=== PATIENT | female | born 1950 | race Caucasian/White ===

== ENCOUNTER 2017-10-13 08:27 | Day surgery (SDC) | payer MEDICARE, BC ==
[~2017-10-13] VITALS: Ht 165.1 cm; Wt 74.8 kg
--- NOTE | ~2017-10-13 | OP ---
PATIENT NAME: RODRIGO BRADFORD MEDICAL RECORD: [id number] :46 LOCATION:D.OPS ADMISSION DATE: SURGEON: CARLOS DUGGAN MD DATE OF OPERATION: 10/13/2017 PREOPERATIVE DIAGNOSIS: Transverse colon polyp, at 60 cm, serrated adenoma. POSTOPERATIVE DIAGNOSES: Transverse colon polyp, at 60 cm, serrated adenoma with no evidence of recurrence or persistence of the polyp. PROCEDURE: Total colonoscopy to cecum. SURGEON: Carlos Duggan MD CEILING INSULATION BLOWER: None. BLOOD LOSS: Minimal. ANESTHESIA: General. COMPLICATIONS: None. The procedure was performed in the operating room because I felt that we were going to need to ablate tissue with the argon plasma combat control manager. There was no recurrence or persistence of the polypoid tissue. OPERATIVE COURSE: The patient was conveyed to the operating room electively on 10/13/2017. General anesthesia was induced by the anesthesia staff. The patient was placed in the Pugh position. A digital rectal examination was performed. A colonoscope was inserted through the anus. It was easily advanced to the cecum. I slowly withdrew the endoscope. The tattooed area was easily identified. I scrutinized this area with the colonoscope and used direct imaging as well as narrow band imaging. I found no persistence or recurrence of the polypoid tissue. I then withdrew the endoscope into the rectum. A retroflexed view was obtained in the rectum. I then unretroflexed the scope and removed it under direct vision. PLAN: To have the patient's next surveillance colonoscopy to take place in 2 years in the GI lab without the need for argon plasma combat control manager. If there has been no regrowth of polypoid tissue at that time, I will return the patient's endoscopic needs back over to her refining engineer. There is no need for the patient to follow up with me in the office as no biopsies were performed. TRANSINT:[id number] Voice Confirmation ID: [id number] DOCUMENT ID: [id number] CARLOS DUGGAN MD at 115 CC: Allyn DICKENS SHERILYN [id number] DICTATION DATE: 10/13/17 1327 WOOD TILE INSTALLER: 10/13/17 1340 [facility] 10/13/17 [id number] [place] [address]
[~2017-10-13 08:27] MED LIST: LOVASTATIN20 MG PO
[2017-10-13] MEDS ORDERED: ZYRTEC10 MG PO (09:02)
[2017-10-13 09:10] VITALS: BP 121/61; BMI 27.5
[2017-10-13 09:38] VITALS: BP 121/61; Ht 165.1 cm; Wt 74.8 kg
[2017-10-13 10:22] LABS: HEMATOCRIT 40.2 % (36.0-48.0); HEMOGLOBIN 13.7 g/dL (12-16); MCH 30.8 pg (26.0-34.0); MCHC 34.1 g/dL (31.0-37.0); MCV 90.3 fL (80.0-100.0); MEAN PLATELET VOLUME 11.4 fL (7.4-10.4); RBC 4.45 10x6/uL (4.00-5.40); RDW 12.8 % (11.5-14.5); WBC 4.3 10x3/uL (4.8-10.8)
== END 2017-10-13 14:30 | disposition home or self-care (01) ==
LOC: D.OPS 08:27 → D.PAN 12:00 → D.OPS 12:00
PROVIDERS: Anesthesiology
DX: D12.3 Benign neoplasm of transverse colon (principal); E78.00 Pure hypercholesterolemia, unspecified; Z87.09 Personal history of other diseases of the respiratory system; Z01.812 Encounter for preprocedural laboratory examination